=== PATIENT | female | born 1985 | race Caucasian/White ===

== ENCOUNTER 2016-12-30 16:10 | Emergency (ER) | payer OTHER ==
[~2016-12-30] VITALS: Ht 167.6 cm; Wt 104.3 kg
[~2016-12-30 16:10] MED LIST: FLEXERIL10 MG PO; MEDROL 4MG. DOSE4 MG PO; PREVALITE 4GM PO4 GM PO; VENLAFAXINE H37.5 M2 PO; VICODIN 5/500 T1 TAB PO; VOLTAREN75 MG PO; ZANTAC 150150 MG PO
[2016-12-30 16:59] LABS: URINE BILIRUBIN - DIPSTICK NEGATIVE (NEG); URINE BLOOD NEGATIVE (NEG)
[2016-12-30 17:07] LABS: URINE SQUAMOUS CELLS 20-50 #/hpf (0-5)
--- NOTE | 2016-12-30 17:21 | Emergency Room Report ---
History of Present Illness Time Seen by [id number] Presenting Problem in Triage Pt arrived:Walked Presenting Problem:C/O SHARP PAIN IN RUQ OF ABD, PT REPORTS PAIN MAKES HER NAUSEA AND SWEATY. PT REPORTS PAIN BEGAN YESTERDAY AFTERNOON. Onset of symptoms date/time:12/29/16/ or onset unknown for:MEDICAL HX UNKNOWN Treatment Prior to Arrival: GRAIN FARMER Provided by: Sepsis Risk Assessment: Temp: 98.3 B/P: 130/69 MAP: 89 Pulse: 84 Resp: 16 Recent fever? N Clinical Suspician of Infection? N Mental Status: 1 - Regular (Normal Baseline) Sepsis Risk:Low Sepsis Risk Have you (or family members/close friends) recently traveled outside the [place]? N If Yes, where/when: Have you had exposure to infectious disease within the past month? N TB? Other? Specify: Comment The patient complains of a 24-hour history of RIGHT lower quadrant pain. She says it initially began more in her RIGHT upper quadrant but then settled into her RIGHT lower quadrant. She says that she has been sweaty but no fever documented. No radiation. The pain is constant but she has some more severe paroxysms. No diarrhea or constipation. Nausea, but no vomiting. Oral intake has been normal. No previous similar pain. She has had a prior cholecystectomy and tubal ligation. ALLERGIES Coded Allergies: oxycodone (I-HIVES 08/22/15) Home Medications Reported Medications VENLAFAXINE HCL (Venlafaxine HCl ER) 37.5 MG PO DAILY #90 Cholestyramine (Prevalite Packet) 4 GM PO DAILY History Medical History General CAD? No Angina: No DE: No Hypertension? No Hyperlipidemia? No CHF? No DVT? No PE? No COPD? No Asthma? Yes Anemia? No GERD? No Gastric ulcers? No GI Bleed? No Hernia? No Thyroid Problems? No Hypothyroidism? No CVA? No Seizures? No Diabetes? No Renal Insuffiency? No End Stage Renal Disease? No UTI? No Stones? Yes GB Disease: Yes Nephritic Syndrome? No Asplenia? No Hepatitis? No Sickle Cell Disease? No Arthritis? No Migraines? No Cataracts? No Glaucoma? No MRSA? No HIV? No TB? No Anxiety? Yes Depression? Yes Cancer? No More? 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 Physical Exam Vital Signs Vital Signs Date Time Temp Pulse Resp B/P Pulse O2 O2 Flow FiO2 Ox Delivery Rate 12/30 1905 82 16 125/75 96 12/30 1645 98.3 84 16 130/69 95 General Appearance no apparent distress Eye Exam - bilateral eye normal exam, bilateral eye PERRL, bilateral eye EOMI Ear, Nose, Throat hearing grossly normal, normal ENT inspection Neck normal inspection, non-tender, supple, full range of motion Respiratory Status Yes: trachea midline, chest symmetrical, non tender chest. No: respiratory distress. Lung Sounds bilateral: normal breath sounds, lungs clear. Cardiovascular normal exam, regular rate/rhythm, no peripheral edema, no gallop, no JVD, no murmur, no rub, normal peripheral pulses Peripheral Pulses Pulses normal Yes Gastrointestinal normal bowel sounds, soft, no organomegaly, no guarding, no rebound, tenderness (RIGHT lower quadrant) Extremities non-tender, normal range of motion, normal inspection Neurologic alert, clinical rehabilitation specialist II-XII nml as tested, normal exam, oriented x 3 Mental status normal mood/affect Skin intact, normal color, warm/dry Medical Decision Making LABS/Meds/Orders Pt receiving controlled substance in ED? No Comment 5:30 PM: Patient refuses pain medication Results/Orders Laboratory Tests 12/30/16 1716: Sodium 141, Potassium 4.1, Chloride 107, Carbon Dioxide 28, BUN 12, Creatinine 0.9, Estimated Creat Clear 146, Estimated GFR (MDRD) 72, Glucose 91, Calcium 8.6 , Total Bilirubin 0.3, AST 29, ALT 45, Alkaline Phosphatase 101, Total Protein 6.9, Albumin 3.2 L, Globulin 3.7 H, Albumin/Globulin Ratio 0.9 L, Lipase 106, WBC 7.1, RBC 4.33, Hgb 13.5, Hct 39.8, MCV 91.9, RDW 12.6, Plt Count 316, MPV 5.9 L, Gran % 65.4, Gran # 4.7, Lymphocytes % 27.9, Monocytes % 3.9, Eosinophils % 2.0, Basophils % 0.7, Lymphocytes # 2.0, Monocytes # 0.3, Eosinophils # 0.1, Basophils # 0.1, PUBS MCHC 33.8, MCH 31.1 12/30/16 1646: Urine Color YELLOW, Urine Appearance CLEAR, Urine pH 7.0, Ur Specific [place] 1.020, Urine Protein NEGATIVE, Urine Ketones NEGATIVE, Urine Blood NEGATIVE, Urine Nitrate NEGATIVE, Urine Bilirubin NEGATIVE, Urine Urobilinogen 0.2, Ur Leukocyte Esterase TRACE H, Urine RBC NONE, Urine WBC 3-5, Ur Squamous Epith Cells 20-50, Urine Bacteria 3+, Urine Glucose NEGATIVE Current Medication Orders Sig/Barbara Start time Last Medication Dose Route Stop Time Status Admin Iopamidol 75 ML ONCE ONE 12/30 1815 UNV 12/30 IV 12/30 181 1807 Sodium Chloride 10 ML ONCE ONE 12/30 1815 UNV 12/30 IV 12/30 181 1807 Sodium Chloride 1,000 ML .Q1H1M 12/30 1745 DC 12/30 IV 12/30 1845 1748 Sodium Chloride 1,000 ML .STK-MED ONE 12/30 1740 DC IV Sodium Chloride 1,000 ML .STK-MED ONE 12/30 1737 DC IV Sodium Chloride 10 ML PRN PRN 12/30 1730 AC IV 12/31 1721 Orders Procedure Date/time Status DIET-NOTHING BY MOUTH 12/[address] ABD & PELVIS W/ CONTRAST 12/[address] ABD/PELVIS REQ 12/30 1731 Complete LIPASE 12/30 1731 Complete CBC WITH AUTO DIFF 12/30 1731 Complete CHEM 12 PROFILE 12/30 1731 Complete IV SALINE LOCK 12/30 1721 Active URINALYSIS/COMPLETE 12/30 1650 Complete URINE 12/30 1650 Complete CULTURE, URINE 12/30 1646 Active XRAY/CT/US XRAY/CT/US CT abdomen Comment CT scan interpreted by ad radiologist. Faxed report received and reviewed: Normal appendix. No acute process. Departure Departure Disposition DC Home or Self Care(routine) Clinical Impression Primary Impression: Right lower quadrant abdominal pain Condition STABLE Referrals Jose Luis Webster MD (Family) Patient Instructions DI for Abdominal Pain-Adult Additional Instructions Additional instructions for ABDOMINAL PAIN: See your physician as soon as possible for further evaluation. Return immediately if worsening abdominal pain, vomiting, shortness of breath, fever, vomiting of blood or abdominal distention. ED Critical Care Critical Care No at [id number]
[2016-12-30 17:39] LABS: HEMOGLOBIN 13.5 g/dL (12.2-16.2); LYMPH % 27.9 % (10-50.0)
[2016-12-30 20:22] VITALS: BP 128/80
--- NOTE | 2016-12-31 09:38 | RADIOLOGY REPORT PS360 ---
CT ABD PELVIS W/ CONTRAST CLINICAL INDICATION: Right lower quadrant abdominal pain ABDOMEN PAIN ORDERING PHYSICIAN: Nicola Burch MD PATIENT AGE: 31 years COMPARISON: 01/08/2009 TECHNIQUE: Axial images obtained with sagittal and coronal reformats. PROCEDURE: Oral Contrast: None IV Contrast: 75 mL [id number]. FINDINGS: Lower thorax: No acute finding ABDOMEN: Liver: No masses or biliary dilatation. Gallbladder: Status post cholecystectomy Pancreas: No masses or peripancreatic fluid collections. Spleen: Unremarkable. Adrenals: Unremarkable Kidneys/ureters: No masses. No renal calculi. No hydronephrosis. No perinephric fluid collections. No ureteral dilatation or obvious ureteral calculi. Stomach bowel: Nondistended. No obvious mass or thickening. Appendix: No evidence of appendicitis. PELVIS: Reproductive: 1.5 cm left ovarian cyst Bladder: Nondistended. No obvious stones or masses. ABDOMEN & PELVIS: Peritoneum: No abnormal fluid collections. No obvious inflammatory changes. No free air. Lymph nodes: No enlarged lymph nodes apparent. Vasculature: No evidence of abdominal aortic aneurysm. No retroperitoneal hemorrhage evident. Bones: Bulging disc eccentric to the right with endplate osteophytes and right-sided foraminal narrowing at L5-S1 IMPRESSION: 1. No acute intra-abdominal pathology. No evidence of acute appendicitis. 2. 1.5 cm left ovarian cyst. 3. Degenerative disc disease with bulging disc and right-sided foraminal narrowing at L5-S1
== END 2016-12-30 20:33 | disposition home or self-care (01) ==
LOC: UTC 16:10 → ER 16:13 → UTC 16:13 → ER 20:33
PROVIDERS: Emergency Medicine
DX: R10.31 Right lower quadrant pain (principal)
CPT/HCPCS: Q9967